=== PATIENT | female | born 1980 | race Caucasian/White ===

== ENCOUNTER 2019-06-15 13:29 | Outpatient (CLI) | payer OTHER, SELFPAY ==
--- NOTE | ~2019-06-15 | XR_ITS ---
EXAMINATION: XR thoracic spine 3V EXAM DATE: 06/15/2019 14:25 INDICATION: Mid back pain. TECHNIQUE: Frontal and lateral projections of the thoracic spine as well as lateral swimmers projecti on of the upper thoracic spine for interpretation. There is no prior study for comparison. FINDINGS: There is minimal mid and lower thoracic disc disease. The vertebral bodies are aligned in the AP dimension. The vertebral body heights are maintained. Paraspinal soft tissue is unremarkable. IMPRESSION: Minimal thoracic disc disease. Reviewed, dictated and finalized at location A. ENT SERVICE TECHNICIAN PST
== END 2019-06-15 13:30 | disposition home or self-care (01) ==
PROVIDERS: PCP Family Medicine; Visit Provider Physician Assistant
DX: M54.9 Dorsalgia, unspecified (principal)
CPT/HCPCS: 72072

== ENCOUNTER → 2022-06-09 08:11 | Outpatient (CLI) | payer OTHER, SELFPAY ==
--- NOTE | ~2022-06-09 | MM_ITS ---
EXAMINATION: MM screening demetri BI w slick HISTORY: Screening TECHNIQUE: Craniocaudal and mediolateral oblique 3-D tomosynthesis images were obtained and synthetic 2-D images were generated. CAD analysis was submitted and interpreted. COMPARISON: No prior mammogram is available for comparison at this institution. BREAST PARENCHYMAL COMPOSITION: There are scattered areas of fibroglandular density. FINDINGS: There is no evidence of suspicious mass, calcification, or architectural distortion to sugg est malignancy in either breast. There has been no suspicious interval change. IMPRESSION: 1. No mammographic evidence of malignancy. 2. Recommend routine screening mammography in one year. BI-RADS Category 1: Negative Reviewed, dictated and finalized at location A. ER
== END ==
PROVIDERS: PCP Family Medicine; Visit Provider Nurse Practitioner
DX: Z12.31 Encounter for screening mammogram for malignant neoplasm of breast (principal)
CPT/HCPCS: 77063; 77067

== ENCOUNTER 2022-07-08 08:17 | Emergency (ER) | payer OTHER, SELFPAY ==
[2022-07-08 08:35] VITALS: BP 160/90; PULSE 93; RESP 16; TEMP 36.8; O2SAT 100
--- NOTE | 2022-07-08 08:57 | ED.SKABFB ---
HPI - Skin/Abscess/Foreign Bdy General Chief complaint: Skin/Abscess/Foreign Body Stated complaint: CYST ON CHEST Time Seen by Provider: 07/08/22 08:57 Source: patient, RN notes reviewed and old records reviewed Mode of arrival: ambulatory Limitations: no limitations History of Present Illness HPI narrative: 42-year-old female who presents to [facility] with complaints of having cyst type of lesion on chest region right below [facility] area for 3-4 years and she wore a different bra last Saturday which rubbed area. Patient reports that on she noted increased redness and white pustular lesion which she stuck a needle in and it drained yellow green drainage. Patient now has red lesion with surrounding redness with white looking tissue in center with some bleeding noted. MD complaint: abscess/boil and other (cyst) Onset (ago): day(s) (3) Location: chest Treatments prior to arrival: attempted to drain pus at home Related Data Home Medications Medication Instructions Recorded Confirmed cholecalciferol (vitamin D3) 50 50 mcg PO DAILY 03/21/22 07/08/22 mcg (2,000 unit) capsule Allergies Allergy/AdvReac Type Severity Reaction Status Date / Time amoxicillin Allergy Mild Unknown Verified 07/08/22 08:29 latex Allergy Mild RASH Verified 07/08/22 08:29 Review of Systems Review of Systems: CONSTITUTIONAL: Denies fever, chills, or sweats. CARDIOVASCULAR: Denies chest pain, palpitations, or edema. RESPIRATORY: Denies cough or dyspnea. GASTROINTESTINAL: Denies abdominal pain, nausea, vomiting SKIN: Reports redness and swelling.around lesion on chest,reports purulent drainage, white tissue now in center of lesion MUSCULOSKELETAL: Denies myalgia. NEUROLOGIC: Denies headache, numbness All systems reviewed & are unremarkable except as noted in HPI and below PMFSH Past Medical History Medical History (Updated 07/09/22 @ 19:44 by Nisha Pradhan NP) Seasonal allergies Surgical History Surgical History (Updated 07/09/22 @ 19:31 by Nisha Pradhan NP) Previous section x3 Family History Family History Mother Family history of hypercholesterolemia Hypertension Family history of cardiovascular disease Father Patient's father is , Onset Age: 55 Family history of lung cancer Family history of malignant neoplasm of kidney Social History Social History (Updated 03/21/22 @ 11:41 by Juliette Leone PA-C) Smoking status: Former smoker Second hand tobacco smoke exposure: Yes Smoking end date: 10/20/19 Alcohol intake: current Substance use: never Lack of Transportation: No Lack of Food: Never True Current Housing: I Have Housing Concerned About Future Housing: No Difficulty Paying Gas/Electric Bills: No Difficulty Paying for Meds: No Currently Unemployed: No Education: High School Diploma/GED Difficulty w/ Childcare or Family Care: No Comments At time of signature, agree with nursing past medical, surgical, social and family history. There is no relevant family history pertinent to the presenting complaint Exam Narrative: GENERAL: Well-appearing, well-nourished, and in no acute distress. HEAD: Normocephalic, atraumatic. EYES: PERRLA and EOMI. ENT: Nares clear, no rhinorrhea or epistaxis. Mucous membranes moist.TM's normal with good light refles, throat pink with no lesions or exudates or swelling. NECK: Supple. no lymphadenopathy CHEST: Clear to auscultation. No respiratory distress.SAO2 100% on room air HEART: Regular rate and rhythm. No murmur heard. Normal peripheral pulses. ABDOMEN: Soft, nontender, nondistended, normal active bowel sounds. EXTREMITIES: Normal range of motion. No edema. SKIN: Warm, dry. Erythema, tenderness to 0.5cm lesion on chest wall xiphoid area with white spongy tissue in center of lesion, surrounding redness NEURO: No focal deficits. Alert and oriented x3. Course Course
== END 2022-07-08 09:26 | disposition home or self-care (01) ==
PROVIDERS: Emergency Provider Registered Nurse; PCP Family Medicine
DX: L02.213 Cutaneous abscess of chest wall (principal); Z87.891 Personal history of nicotine dependence
CPT/HCPCS: 99213; G0463

== ENCOUNTER 2022-07-16 08:13 | Emergency (ER) | payer OTHER, SELFPAY ==
[2022-07-16 08:18] VITALS: BP 150/89; PULSE 86; RESP 20; TEMP 37.1; O2SAT 100
--- NOTE | 2022-07-16 08:30 | ED.URI ---
HPI - URI/Sore Throat General Chief Complaint: Upper Respiratory Infection Stated Complaint: Sore Throat History of Present Illness HPI Narrative: 42-year-old female presented for complaint of sore throat for 2 days. Endorses mild sinus congestion and postnasal drainage. Child dx strep 5 days ago. Currently taking clindamycin for skin cyst. Denies cough, shortness of breath, wheezing, nausea, vomiting, diarrhea, fevers or chills. Not taking anything else for symptoms. Related Data Home Medications Medication Instructions Recorded Confirmed cholecalciferol (vitamin D3) 50 50 mcg PO DAILY 03/21/22 07/16/22 mcg (2,000 unit) capsule Allergies Allergy/AdvReac Type Severity Reaction Status Date / Time amoxicillin Allergy Mild Unknown Verified 07/16/22 08:25 latex Allergy Mild RASH Verified 07/16/22 08:25 Review of Systems Review of Systems: ROS [facility] Past Medical History Medical History Seasonal allergies Surgical History Surgical History Previous section x3 Family History Family History Mother Family history of hypercholesterolemia Hypertension Family history of cardiovascular disease Father Patient's father is , Onset Age: 55 Family history of lung cancer Family history of malignant neoplasm of kidney Social History Social History Smoking status: Former smoker Second hand tobacco smoke exposure: Yes Smoking end date: 10/20/19 Alcohol intake: current Substance use: never Lack of Transportation: No Lack of Food: Never True Current Housing: I Have Housing Concerned About Future Housing: No Difficulty Paying Gas/Electric Bills: No Difficulty Paying for Meds: No Currently Unemployed: No Education: High School Diploma/GED Difficulty w/ Childcare or Family Care: No Exam Narrative: GENERAL: well-appearing, no acute distress. EYES: conjunctivae clear ENT: Mucous membranes moist. TM pearly walter with normal light reflex bilaterally; no tragal tenderness. Oropharynx erythematous without lesions. Tonsils enlarged 2+ without exudate. No drooling, no hoarseness, no trismus, uvula midline. No tripod positioning, hot potato voice, or soft palate swelling. NECK: Supple. No lymphadenopathy CHEST: Clear to auscultation, breath sounds equal. HEART: Regular rate and rhythm. No murmur heard. SKIN: Warm, dry, no rash. NEURO: Alert and oriented x3. Course Course Emergency Course: Patient is aware of diagnosis, understands and agrees to treatment plan. Anticipatory guidance given. Patient agrees to follow-up as directed and is aware of reasons to seek care at the emergency department. Portions of this record may have been created with voice recognition software Level of Care: Express Care Visit Vital Signs Vital signs: Vital Signs Temperature 98.7 F 07/16/22 08:18 Pulse Rate 86 07/16/22 08:18 Respiratory Rate 20 07/16/22 08:18 Blood Pressure 150/89 H 07/16/22 08:18 Pulse Oximetry 100 07/16/22 08:18 Oxygen Delivery Room Air 07/16/22 08:18 Temperature 98.7 F 07/16/22 08:18 Pulse Rate 86 07/16/22 08:18 Respiratory Rate 20 07/16/22 08:18 Blood Pressure 150/89 H 07/16/22 08:18 Pulse Oximetry 100 07/16/22 08:18 Oxygen Delivery Room Air 07/16/22 08:18 MDM - URI/Sore Throat MDM Narrative Medical decision making narrative: strep result reviewed with pt. Advise supportive treatments. Patient is appropriate for outpatient treatment and follow-up. Differential Diagnosis Differential diagnosis: Likely upper respiratory infection, viral infection and pharyngitis Lab Data Labs: Strep Screen Presumptive Negative *(Referen
== END 2022-07-16 08:51 | disposition home or self-care (01) ==
PROVIDERS: Emergency Provider Nurse Practitioner Family; PCP Family Medicine
DX: J02.9 Acute pharyngitis, unspecified (principal); Z87.891 Personal history of nicotine dependence
CPT/HCPCS: 87081; 87880; 99213; G0463

== ENCOUNTER 2023-07-26 17:19 | Emergency (ER) | payer OTHER, SELFPAY ==
[2023-07-26 17:28] VITALS: BP 174/108; PULSE 90; RESP 16; TEMP 36.8; O2SAT 100
[2023-07-26 17:35] VITALS: BP 178/105
--- NOTE | 2023-07-26 17:52 | ED.URI ---
HPI - URI/Sore Throat General Chief Complaint: Upper Respiratory Infection Stated Complaint: throat/cough/sinus pressure/ears History of Present Illness HPI Narrative: 43-year-old female presented for complaint of cough, headache, and sinus congestion for several weeks. Endorses bilateral ear pain. Pain 3/10. Pt was seen by the [facility] bus 2 days ago. Tested negative for flu, COVID, and strep. Was given Rx doxy, benzonatate. Did not start benzonatate until today. States cough is getting worse. Taking Delsym, Zyrtec, and other decongestants. denies shortness of breath, wheezing nausea, vomiting diarrhea, fevers or chills. Related Data Home Medications Medication Instructions Recorded Confirmed cholecalciferol (vitamin D3) 50 50 mcg PO DAILY 03/21/22 05/07/23 mcg (2,000 unit) capsule Delsym 07/26/23 Women's One Daily 07/26/23 Zyrtec 07/26/23 benzonatate 200 mg capsule mg PO 07/26/23 doxycycline hyclate 100 mg capsule mg 07/26/23 Allergies Allergy/AdvReac Type Severity Reaction Status Date / Time amoxicillin Allergy Mild Unknown Verified 07/26/23 17:25 latex Allergy Mild RASH Verified 07/26/23 17:25 Review of Systems Review of Systems: ROS [facility] Past Medical History Medical History Seasonal allergies Surgical History Surgical History Previous section x3 Family History Family History Mother Family history of hypercholesterolemia Hypertension Family history of cardiovascular disease Father Patient's father is , Onset Age: 55 Family history of lung cancer Family history of malignant neoplasm of kidney Social History Social History Smoking status: Former smoker Second hand tobacco smoke exposure: Yes Smoking end date: 10/20/19 Alcohol intake: current Substance use: never Lack of Transportation: No Lack of Food: Never True Current Housing: I Have Housing Concerned About Future Housing: No Difficulty Paying Gas/Electric Bills: No Difficulty Paying for Meds: No Currently Unemployed: No Education: High School Diploma/GED Difficulty w/ Childcare or Family Care: No Exam Narrative: GENERAL: well-appearing, no acute distress. EYES: conjunctivae clear ENT: Mucous membranes moist. nasal congestion. TMs pearly walter with normal light reflex , mild clear effusion bilaterally; no tragal tenderness. Oropharynx erythematous without lesions. Tonsils not enlarged and without exudate. No drooling, no hoarseness, no trismus, uvula midline. No tripod positioning, hot potato voice, or soft palate swelling. NECK: Supple. No lymphadenopathy CHEST: Clear to auscultation, breath sounds equal. No respiratory distress, speaks in full sentences. HEART: Regular rate and rhythm. No murmur heard. SKIN: Warm, dry, no rash. NEURO: Alert and oriented x3. Course Course Emergency Course: Patient is aware of diagnosis, understands and agrees to treatment plan. Anticipatory guidance given. Patient agrees to follow-up as directed and is aware of reasons to seek care at the emergency department. Portions of this record may have been created with voice recognition software Level of Care: Express Care Visit Vital Signs Vital signs: Vital Signs Temperature 98.3 F 07/26/23 17:28 Pulse Rate 90 07/26/23 17:28 Respiratory Rate 16 07/26/23 17:28 Blood Pressure 174/108 H 07/26/23 17:28 Pulse Oximetry 100 07/26/23 17:28 Oxygen Delivery Room Air 07/26/23 17:28 Temperature 98.3 F 07/26/23 17:28 Pulse Rate 90 07/26/23 17:28 Respiratory Rate 16 07/26/23 17:28 Blood Pressure 178/105 H 07/26/23 17:35 Pulse Oximetry 100 07/26/23 17:28 Oxygen Delivery Room Air 07/26/23 17:28 [facility] - URI/
== END 2023-07-26 18:18 | disposition home or self-care (01) ==
PROVIDERS: Emergency Provider Nurse Practitioner Family; PCP Family Medicine
DX: J06.9 Acute upper respiratory infection, unspecified (principal); Z87.891 Personal history of nicotine dependence
CPT/HCPCS: 99213; G0463

== ENCOUNTER 2024-03-11 15:41 | Outpatient (CLI) | payer OTHER, SELFPAY ==
--- NOTE | ~2024-03-11 | MM_ITS ---
EXAMINATION: MM screening demetri BI w slick HISTORY: Screening mammogram TECHNIQUE: Craniocaudal and mediolateral oblique 3-D tomosynthesis images were obtained and synthetic 2-D images were generated. CAD analysis was submitted and interpreted. COMPARISON: 06/09/2022 BREAST PARENCHYMAL COMPOSITION:Not Dense. There are scattered areas of fibroglandular density. FINDINGS: No suspicious mass, calcification, or architectural distortion are identified in either francesca ast to suggest malignancy. There has been no suspicious interval change. IMPRESSION: No mammographic evidence of malignancy. Recommend routine screening mammography in one year. BI-RADS Category 1: Negative Reviewed, dictated and finalized at location .
== END 2024-03-11 15:42 | disposition home or self-care (01) ==
LOC: MICIMG 15:41
PROVIDERS: PCP Nurse Practitioner; Visit Provider Nurse Practitioner
DX: Z12.31 Encounter for screening mammogram for malignant neoplasm of breast (principal)
CPT/HCPCS: 77063; 77067

== ENCOUNTER 2024-04-04 07:25 | Outpatient (CLI) | payer OTHER, SELFPAY ==
--- NOTE | ~2024-04-04 | US_ITS ---
US right upper quadrant DATE: 04/04/2024 07:49 INDICATION: Elevated liver function tests TECHNIQUE: Real-time imaging of the liver, pancreas, gallbladder COMPARISON: None FINDINGS: The pancreas is not well demonstrated due to interference from overlying bowel. There is diffuse hepatic steatosis. No hepatic space-occupying mass lesion is noted. There is normal hepatopedal portal venous flow direction. There is acoustical shadowing from stone(s) in the gallbladder lumen. Borderline gallbladder wall thi ckening. Negative sonographic Cedillo sign. The common bile duct measures 6 mm, upper limits of normal. IMPRESSION: Cholelithiasis; borderline gallbladder wall thickness Hepatic steatosis Common bile duct measures 6 mm, upper normal limit The pancreas is obscured, not diagnostically demonstrated Reviewed, dictated and finalized at Location A. Reviewed, dictated and finalized at location A. NICAL SPECIALIST
== END 2024-04-04 07:26 | disposition home or self-care (01) ==
LOC: MICIMG 07:26
PROVIDERS: PCP Family Medicine; Visit Provider Student in an Organized Health Care Education/Training Program
DX: R74.8 Abnormal levels of other serum enzymes (principal); K80.20 Calculus of gallbladder without cholecystitis without obstruction; K76.0 Fatty (change of) liver, not elsewhere classified
CPT/HCPCS: 76705

== ENCOUNTER 2025-03-15 15:51 | Outpatient (CLI) | payer OTHER, SELFPAY ==
--- NOTE | ~2025-03-15 | MM_ITS ---
EXAMINATION: MM screening demetri BI w slick HISTORY: Screening TECHNIQUE: Craniocaudal and mediolateral oblique 3-D tomosynthesis images were obtained and synthetic 2-D images were generated. CAD analysis was submitted and interpreted. COMPARISON: Comparison to multiple prior studies sequentially, with oldest reviewed study dated , 06/09/2022 BREAST PARENCHYMAL COMPOSITION: There are scattered areas of fibroglandular density. FINDINGS: There is no evidence of suspicious mass, calcification, or architectural distortion to suggest malignancy in either breast. IMPRESSION: 1. No mammographic evidence of malignancy. 2. Recommend routine screening mammography in one year. BI-RADS Category 1: Negative Reviewed, dictated and finalized at location B. OPERATOR
== END 2025-03-15 15:52 | disposition home or self-care (01) ==
LOC: MICIMG 15:54
PROVIDERS: PCP Obstetrics & Gynecology Gynecology; Visit Provider Obstetrics & Gynecology Gynecology
DX: Z12.31 Encounter for screening mammogram for malignant neoplasm of breast (principal)
CPT/HCPCS: 77063; 77067

== ENCOUNTER 2025-04-23 15:01 | Outpatient (CLI) | payer OTHER, SELFPAY ==
--- NOTE | ~2025-04-23 | US_ITS ---
EXAMINATION: US transvaginal, 04/23/2025 15:04 TICKET ATTENDANT HISTORY: IUD placement Comparison: None Technique: Naylor-scale and color Doppler images were obtained. Findings: Uterus: Uterus is anteverted measuring 8.9 x 5.3 x 5.6 cm. IUD noted within the lower uterine cavity, the arm appears embedded within the posterior uterine myometrium although there is no gross perforation of the abdomen wall identified. . Endometrium 11 mm. Right Ovary:Right ovary not identified. Left Ovary: Left ovary not identified. Free Fluid: None Impression: Malpositioned IUD. CT recommended Reviewed, dictated and finalized at location P. ET ATTENDANT Impression: Malpositioned IUD. CT recommended
== END 2025-04-23 15:02 | disposition home or self-care (01) ==
LOC: MICIMG 15:02
PROVIDERS: PCP Obstetrics & Gynecology Gynecology
DX: T83.32XA Displacement of intrauterine contraceptive device, initial encounter (principal); Y83.8 Other surgical procedures as the cause of abnormal reaction of the patient, or of later complication, without mention of misadventure at the time of the procedure
CPT/HCPCS: 76830